=== PATIENT | female | born 1965 | race Hispanic/Latino ===

== ENCOUNTER 2025-10-03 07:11 | Day surgery (SDC) | payer MEDICARE ==
[~2025-10-03] VITALS: Ht 157.5 cm; Wt 104.3 kg
[2025-10-03] VITALS (7 sets, daily range): BP systolic 109–133; BP diastolic 53–75; PULSE 62–68; RESP 14–18; TEMP 97.4–98.1
[~2025-10-03 07:11] MED LIST: ACET-3859 PO; AMLO-258 PO; AUD IH; BUME1TAB6 PO; FERS325 PO; FOLI0.8T53 PO; HYDR100T15 PO; LACT-441 PO; METO50TA18 PO; MINO2.5T3 PO; PANT40TA54 PO; POLY17PO4 PO; PREG25CA19 PO; SENN8.6T32 PO; SODI650T PO; SPIR50TA5 PO; VENL-83 PO; VITA1CAP85 PO
[2025-10-03 07:52] LABS: IMMATURE GRANULOCYTE ABSOLUTE 0.06 K/uL (0-1); NUCLEATED RED BLOOD CELLS 0.0 % (0.0-0.19); PLATELET COUNT (AUTO) 102 K/uL (130-400); RED BLOOD CELL COUNT(AUTO) 2.90 MIL/uL (4.00-5.50); RED CELL DISTRIBUTION WIDTH 17.5 % (11.0-15.5); WHITE BLOOD COUNT (AUTO) 9.1 K/uL (4.8-10.8)
[2025-10-03 08:02] LABS: INR 1.0 (0.85-1.15)
[2025-10-03 08:05] LABS: CREATININE 5.8 mg/dL (0.5-1.0); GLOMERULAR FILTR. RATE CALC 8.0 mL/min (>90); GLUCOSE,RANDOM 96.0 mg/dL (70-105); SODIUM SERUM 143.0 mmol/L (136-145)
[2025-10-03 08:09] LABS: UREA NITROGEN, BLOOD 111.0 mg/dL (7-18)
[2025-10-03] MEDS ORDERED: LIDOCAINE HCL 1% MDV 50ML VIAL ONE (10:58)
[2025-10-03] MEDS ORDERED: IODIXANOL 320 MG/ML 100 ML VIAL ONE (10:58)
[2025-10-03] MEDS ORDERED: HEParin-NS 1,000 UNIT/500 ML 1,000 ML IV ONE (10:58)
[2025-10-03] MEDS ORDERED: MIDAZOLAM HCL 1 MG/ML 2ML VIAL ONE (12:14)
--- NOTE | 2025-10-03 12:45 | NUR ---
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
--- NOTE | 2025-10-03 13:15 | NUR ---
EMS CALLED NO NEED TO REDO TRANSFER EMS PAPERS PER DISPATCH , REPORT HAS BEEN CALLED TO [facility] NURSE NII, PT HELPED TO EAT HER LUNCH TRAY TOLERATED WELL NO N/V
--- NOTE | 2025-10-03 14:15 | NUR ---
[facility] HERE PT TRANSFER TO STRETCHER WITHOUT INCIDENT , PT IN NO DISTRESS PT STAY
--- NOTE | 2025-10-03 14:42 | CCATH ---
The patient's last study; * exchange of a right-sided nephrostomy catheter. * Nephrostogram. HISTORY: This is a 59-year-old female with a right nephrostomy tube not functioning well. After sterilely prepped and draped, the right-sided nephrostomy tube and fluoroscopy was performed. The study demonstrated the catheter to be in the lower calyx. Over an angiographic wire, this was exchanged and right 8.5 new nephrostomy catheter was deployed in the right renal pelvis. A nephrostomogram demonstrated the catheter to be in satisfactory positioning in right renal pelvis. The catheter was secured with a 3-0 silk suture and connected to a urinary drainage bag. IMPRESSION: Exchange of her right-sided nephrostomy catheter from 8.5 to another 8.5 nephrostomy catheter which is in satisfactory position. TID: [id number] RECEIPT: [id number]
== END 2025-10-03 14:15 ==
LOC: DAH 07:11
PROVIDERS: ATTEND Family Medicine
DX: N99.522 Malfunction of incontinent external stoma of urinary tract (principal); I13.0 Hypertensive heart and chronic kidney disease with heart failure and stage 1 through stage 4 chronic kidney disease, or unspecified chronic kidney disease; E11.22 Type 2 diabetes mellitus with diabetic chronic kidney disease; N18.9 Chronic kidney disease, unspecified; I50.9 Heart failure, unspecified; E11.40 Type 2 diabetes mellitus with diabetic neuropathy, unspecified; E66.01 Morbid (severe) obesity due to excess calories; Z68.41 Body mass index [BMI] 40.0-44.9, adult; Z86.2 Personal history of diseases of the blood and blood-forming organs and certain disorders involving the immune mechanism
CPT/HCPCS: 99156; 50435; 80048; 85025; 85610; 85730; 82948 ×2; 36415; A4223 ×2; C1769; C1729; J3010; J2250; J1644; J3490; Q9967; A4222; A4663; A4216; A4606